=== PATIENT | male | born 1955 | race Caucasian/White ===

== ENCOUNTER → 2016-12-20 | Day surgery (SDC) | payer OTHER ==
[~2016-12-20] MED LIST: AMOXICILLIN500 M1 PO; ASPIRIN PO; CO Q-10200 MG PO; METOPROLOL PO; PRAVASTATIN SOD20 MG PO; VASCEPA1 GM PO
--- NOTE | ~2016-12-20 | OR ---
Unit #: [id number] #: [id number] Patient: PERRY GOTTLIEB [id number] [address] [place], [place] [address] [id number] O MR#: [id number] NAME: PERRY GOTTLIEB ROOM: Date of Procedure: 12/20/2016 Admission Date: 12/20/2016 Surgeon: Lucian Graff Jr., M.D. : 1955 Attending Physician: Lucian Graff Jr., M.D. Primary Care Physician: Osvaldo Salazar Sr., M.D. OPERATIVE REPORT INDICATIONS FOR PROCEDURE The patient is a 61-year-old white male, who had a colonoscopy approximately 10 years ago that was normal. He is brought back in at this time at his request for followup screening colonoscopy. The patient understands the procedure including the risks, including that of bleeding and perforation, and consents. PREOPERATIVE DIAGNOSIS Desired screening colonoscopy, rule out pathology. POSTOPERATIVE DIAGNOSIS Normal colonoscopy to the cecum. ANESTHESIA MAC anesthesia. PROCEDURE PERFORMED Flexible fiberoptic colonoscopy to the cecum. DESCRIPTION OF PROCEDURE The patient was positioned in Barrett position with left side down. After being given MAC anesthesia, digital rectal examination was performed, which revealed no palpable mass or tenderness. No blood or stool within the rectal ampulla. Prostate was normal by palpation. The Olympus colonoscope was advanced through the anal canal up the rectum and retroflexed down to the area of the anorectal region. There was no evidence of any fissures and no significant internal hemorrhoids. The scope was then straightened and advanced up in the rectosigmoid, in the sigmoid and descending colon areas, around the splenic flexure and the transverse colon, around the hepatic flexure and ascending colon, down in the area of the cecum. The light from the tip of the scope could be seen transilluminating through right lower quadrant abdominal wall area. Multiple attempts advancing the scope up the distal ileum were unsuccessful. The scope was slowly removed. There were no tumors, polyps, cancer, or AVMs. No evidence of any colitis, diverticulosis, or diverticulitis. The caliber of the colon appeared normal throughout. The scope was removed. The patient tolerated the procedure well and discharged in satisfactory condition. Dictated by... Lucian Graff Jr., M.D. Unit #: [id number] #: [id number] Patient: PERRY GOTTLIEB/maninder TD: 12/20/2016 22:30 JOB #: [id number] OPERATIVE REPORT Page 1 of 1 X Lucian Graff MD PROCEDURE OPERATIVE NOTE
== END | disposition home or self-care (01) ==
LOC: COPS 11:05
DX: Z12.11 Encounter for screening for malignant neoplasm of colon (principal); K21.9 Gastro-esophageal reflux disease without esophagitis; Z79.82 Long term (current) use of aspirin; Z86.79 Personal history of other diseases of the circulatory system
CPT/HCPCS: J2250